=== PATIENT | male | born 1960 | race Caucasian/White ===

== ENCOUNTER → 2017-05-28 | Outpatient (CLI) | payer BC ==
--- NOTE | 2017-05-28 16:01 | US ---
EXAMINATION TYPE: US venous doppler duplex LE LT DATE OF EXAM: 05/28/2017 3:52 PM COMPARISON: NONE CLINICAL HISTORY: M79.662 Pain in left leg, R22.42 swelling in left. SIDE PERFORMED: Left TECHNIQUE: The lower extremity deep venous system is examined utilizing real time linear array sonog priyank with graded compression, doppler sonography and color-flow sonography. VESSELS IMAGED: External Iliac Vein (EIV) Common Femoral Vein Deep Femoral Vein Greater Saphenous Vein * Femoral Vein Popliteal Vein Small Saphenous Vein * Proximal Calf Veins (* superficial vessels) Left Leg: Negative for DVT Grayscale, color doppler, spectral doppler imaging performed of the deep veins of the lower extremiti es. There is normal flow, compressibility, vascular waveforms. IMPRESSION: No evident deep venous thrombosis at or above the left knee.
== END | disposition home or self-care (01) ==
LOC: RADUSWWP 15:24
PROVIDERS: ATTEND Internal Medicine
DX: M79.662 Pain in left lower leg (principal); R22.42 Localized swelling, mass and lump, left lower limb; Z88.8 Allergy status to other drugs, medicaments and biological substances

== ENCOUNTER 2017-08-26 11:25 | Inpatient (IN) | payer BC ==
[2017-08-26] MEDS ORDERED: ALPRAZolam 0.25 MG TAB PO PRN (12:53)
[2017-08-26] MEDS ORDERED: NITROGLYCERIN SL TABS 0.4 MG TAB SUBLINGUAL PRN (12:53)
[2017-08-26] MEDS ORDERED: SODIUM CHLORIDE 0.9% 1,000 ML in EMPTY BAG 1 BAG IV ONE (12:53)
[2017-08-26] MEDS ORDERED: ALPRAZolam 0.5 MG TAB PO PRN (12:53)
[2017-08-26] MEDS ORDERED: TEMAZEPAM 15 MG CAP PO PRN (13:53)
[2017-08-26] MEDS ORDERED: HYDROcodone/APAP 5-325MG 1 EACH TAB PO PRN (13:53)
[2017-08-26 13:54] LABS: Anisocytosis Slight; Basophils % (A) 1 %; Eosinophils # (A) 0.1 k/uL (0-0.7); Eosinophils % (A) 3 %; HCT 27.4 % (39.0-53.0); HGB 8.2 gm/dL (13.0-17.5); Hypochromasia Marked; Lymphocytes # (A) 0.5 k/uL (1.0-4.8); Lymphocytes % (A) 20 %; MCH 27.5 pg (25.0-35.0); MCHC 29.8 g/dL (31.0-37.0); MCV 92.2 fL (80.0-100.0); Monocytes # (A) 0.3 k/uL (0-1.0); Monocytes % (A) 12 %; Neutrophils # (A) 1.5 k/uL (1.3-7.7); Neutrophils % (A) 60 %; RBC 2.97 m/uL (4.30-5.90); RDW 16.5 % (11.5-15.5); WBC 2.5 k/uL (3.8-10.6)
[2017-08-26 13:56] LABS: INR 1.3 (<1.2); Partial Thromboplastin Time 23.4 sec (22.0-30.0); Prothrombin Time 12.6 sec (9.0-12.0)
[2017-08-26] MEDS ORDERED: NALOXONE 0.4 MG/ML 1 ML VIAL IV PRN (13:56)
[2017-08-26 14:10] LABS: ALT 40 U/L (21-72); AST 76 U/L (17-59); Albumin 3.4 g/dL (3.5-5.0); Alkaline Phosphatase 161 U/L (38-126); Anion Gap 11 mmol/L; Blood Urea Nitrogen 15 mg/dL (9-20); Calcium 8.6 mg/dL (8.4-10.2); Carbon Dioxide 21 mmol/L (22-30); Chloride 108 mmol/L (98-107); Cholesterol 103 mg/dL (<200); Glucose 91 mg/dL (74-99); HDL Cholesterol 28 mg/dL (40-60); LDL Cholesterol,Calculated 60 mg/dL (0-99); Potassium 4.5 mmol/L (3.5-5.1); Sodium 140 mmol/L (137-145); Total Bilirubin 1.3 mg/dL (0.2-1.3); Triglycerides 74 mg/dL (<150)
--- NOTE | 2017-08-26 14:28 | XR ---
EXAMINATION TYPE: XR chest 1V portable DATE OF EXAM: 08/26/2017 COMPARISON: Prior chest x-ray 07/17/2013 HISTORY: Congestive heart failure TECHNIQUE: Single frontal view of the chest is obtained. FINDINGS: There is no focal air space opacity, pleural effusion, or pneumothorax seen. The cardiac silhouette size is within normal limits. The osseous structures are intact, old posterior left sixt h rib fracture is thought to be healed. There are overlying cardiac leads. IMPRESSION: No acute process. Stable exam.
[2017-08-26 14:34] LABS: Platelet Count 60 k/uL (150-450)
--- NOTE | 2017-08-26 14:38 | HP ---
HISTORY AND PHYSICAL CHIEF COMPLAINTS: Chest pain. HISTORY OF PRESENT ILLNESS: This 57-year-old gentleman with a past history of hypertension, history of DJD, history of varicose veins, history of anxiety, depression, being followed by Dr. Cardenas in the outpatient setting. The patient had been complaining of chest pain and shortness of breath with chest pain felt in the anterior part of the chest. Patient underwent a stress test as an outpatient by Cardiology. Stress test was positive. Patient admitted for further evaluation including possible cardiac cath. There is no history of fever, rigors. No headache, loss of consciousness. Patient is complaining of back pain. PAST MEDICAL HISTORY: History of DJD, history of hypertension, anxiety, depression, history of nicotine dependence. MEDICATIONS: Prior to admission include: 1. Ambien 10 mg q.h.s. p.r.n. 2. Sudafed 30 mg b.i.d. 3. Prilosec 40 mg daily. 4. Benicar 40 mg p.o. daily. 5. Hydrocodone [place] 10 mg q.i.d. p.r.n. ALLERGIES: BUTALBITAL. FAMILY HISTORY: Colon cancer in the family. SOCIAL HISTORY: History of alcohol, THC, history of smoking. REVIEW OF SYSTEMS: ENT: No diminished hearing or vision. CARDIOVASCULAR: No angina. As mentioned earlier. RESPIRATORY: As mentioned earlier. GI: No nausea. : No dysuria. NERVOUS SYSTEM: No numbness or weakness. ALLERGY/IMMUNOLOGY: No asthma, hayfever. MUSCULOSKELETAL: As mentioned earlier. HEMATOLOGY: No history of anemia. ENDOCRINE: No history of diabetes or hypothyroidism. CONSTITUTIONAL: As mentioned earlier. DERMATOLOGY: Negative. RHEUMATOLOGY: Negative. PSYCHIATRY: As mentioned earlier. PHYSICAL EXAMINATION: Alert and oriented x3. Pulse is 80, blood pressure 120/90, respiration 20, temp is normal. HEENT: Conjunctivae normal. Oral mucosa moist. NECK: No jugular venous distention. No carotid bruit. No lymph node enlargement. CARDIOVASCULAR: S1, S2 muffled. No S3, no S4. RESPIRATORY: Breath sounds diminished in the bases. No rhonchi. No crackles. ABDOMEN: Soft, nontender. No mass palpable. LEGS: No edema, no swelling. NERVOUS SYSTEM: Higher functions as mentioned earlier, moves all 4 limbs, no focal motor deficits. LYMPHATICS: No lymphadenopathy in the neck, axillae, groin. SKIN: No ulcer, rash or bleeding. LABS: At this time, awaited. ASSESSMENT: 1. Chest pain possible unstable angina with positive stress test. 2. Hypertension. 3. Anxiety, depression. 4. Degenerative joint disease. 5. History of nicotine dependence. 6. History of THC. 7. Shortness of breath for evaluation, rule out chronic obstructive pulmonary disease. RECOMMENDATIONS AND DISCUSSION: This 57-year-old gentleman who presented with multiple medical issues, at this time, I recommend to continue current management and symptomatic treatment. Continue with antiplatelet medication, beta blockers and Lipitor. Smoking cessation. Otherwise, closely follow with Cardiology for possible cardiac cath. Resume the home medications and the prognosis guarded. Further recommendations to follow. MMODL / IJN: [id number] /
[2017-08-26] MEDS: NICOTINE 14MG/24HR PATCH TRANSDERM SCH (15:25)
[2017-08-26] MEDS: METOPROLOL TARTRATE 25 MG TAB PO SCH ×2 (15:26→20:43)
[2017-08-26] MEDS: ASPIRIN 81 MG PO SCH (15:27)
--- NOTE | 2017-08-26 16:56 | CONS ---
CONSULTATION Mr. Ortiz is a 57-year-old gentleman who came to the outpatient stress lab for a stress test. Patient has a history of hypertension and a long-standing history of smoking. Patient has been having intermittent left precordial chest discomfort on and off for the last couple of months which is gradually increasing. The pain usually does not radiate to the neck or jaw and pain is not definitely related to exertion. The patient denies any prior history of myocardial infarction. Patient has a history of hypertension. Patient denies any history of diabetes. Patient underwent the stress test. Immediately within the first 3 minutes of exercise the patient started having some mild chest discomfort. EKG showed a horizontal ST-segment depression in leads II, III and aVF which persisted for about 6-8 minutes in the post-exercise period. Patient's pain subsided. In view of the strongly positive stress test, patient is advised further evaluation with cardiac catheterization for definitive diagnosis. PAST MEDICAL HISTORY: 1. History of back problem. 2. History of hypertension. REVIEW OF SYSTEMS: Otherwise unremarkable. Patient denies any history of peptic ulcer disease or any blood in the stool or black stool. He does have a history of some epistaxis. ALLERGIES: NONE KNOWN. PHYSICAL EXAMINATION: Physical examination at present reveals a 57-year-old gentleman who is thinly built, does not appear to be in any acute distress. Blood pressure is 140/80 mmHg. Head/ENT examination is negative. NECK: Supple. There is no increase in jugular venous pressure. Both the carotid pulses are felt. There is no bruit. Chest is symmetrical. HEART: The PMI is not felt. First and second heart sounds were normal. There is no evidence of any murmur. Lungs are clinically clear to auscultation and percussion. Abdomen is negative. EXTREMITIES: Both femoral pulses are felt. Distal pulses are not felt. Echocardiogram was repeated about 15 to 20 minutes after the patient's stress test which reveals normal left ventricular wall motion. FINAL IMPRESSION: This patient has a history suggestive for recent onset of angina with a strongly positive stress test with about 2.[address]-segment depression persisting in the post-exercise period. Rule out underlying significant coronary artery disease. Patient was fully explained the procedure and risks and he wants to proceed with the catheterization. We will discuss with the patient's sister. MMODL / IJN: [id number] /
[2017-08-26] MEDS: HYDROcodone/APAP 10-325MG 1 EACH TAB PO PRN (18:25)
[2017-08-26] MEDS: ATORVASTATIN 80 MG TAB PO SCH (20:42)
[2017-08-26] MEDS ORDERED: LORazepam 2 MG/ML INJ IV PRN ×3 (21:53)
[2017-08-26] MEDS: FAMOTIDINE 20 MG TAB PO SCH (21:56)
[2017-08-27] MEDS: FOLIC ACID 1 MG TAB PO SCH ×2 (00:03→11:01)
[2017-08-27] MEDS: HYDROcodone/APAP 10-325MG 1 EACH TAB PO PRN ×3 (02:35→18:33)
[2017-08-27 05:55] LABS: Glucose,Whole Blood 110 mg/dL (75-99)
[2017-08-27 06:26] LABS: Anion Gap 9 mmol/L; Blood Urea Nitrogen 16 mg/dL (9-20); Calcium 7.8 mg/dL (8.4-10.2); Carbon Dioxide 20 mmol/L (22-30); Chloride 107 mmol/L (98-107); Glucose 95 mg/dL (74-99); Potassium 3.9 mmol/L (3.5-5.1); Sodium 136 mmol/L (137-145)
[2017-08-27] MEDS: METOPROLOL TARTRATE 25 MG TAB PO SCH ×2 (06:30→21:14)
[2017-08-27] MEDS: ASPIRIN 81 MG PO SCH (06:30)
[2017-08-27] MEDS: FAMOTIDINE 20 MG TAB PO SCH (06:30)
[2017-08-27 06:31] LABS: Anisocytosis Slight; HCT 23.9 % (39.0-53.0); HGB 7.3 gm/dL (13.0-17.5); Hypochromasia Marked; MCH 28.1 pg (25.0-35.0); MCHC 30.6 g/dL (31.0-37.0); Mean Platelet Volume 7.6; RDW 16.5 % (11.5-15.5); WBC 3.5 k/uL (3.8-10.6)
[2017-08-27 06:32] LABS: Platelet Count 65 k/uL (150-450)
[2017-08-27 06:57] LABS: Eosinophils # (M) 0.04 k/uL (0-0.7); Lymphocytes # (M) 1.12 k/uL (1.0-4.8); Monocytes # (M) 0.56 k/uL (0-1.0); Neutrophils # (M) 1.79 k/uL (1.3-7.7); Neutrophils % (M) 51 %; Nucleated Red Blood Cells 0 /100 WBC (0-0); Total Cells Counted 100
[2017-08-27] MEDS ORDERED: PANTOPRAZOLE 40 MG TABLET PO SCH (07:30)
[2017-08-27] MEDS: NICOTINE 14MG/24HR PATCH TRANSDERM SCH (07:58)
[2017-08-27] MEDS: IOPAMIDOL-300 CONTRAST 30 ML VIAL (ORAL USE) PO PRN ×2 (10:03→11:00)
--- NOTE | 2017-08-27 12:23 | ECHOF ---
Referral Reason:cp MEASUREMENTS -------- HEIGHT: 177.8 cm WEIGHT: 66.2 kg BP: RVIDd: 2.7 cm (< 3.3) IVSd: 1.0 cm (0.6 - 1.1) LVIDd: 4.8 cm (3.9 - 5.3) LVPWd: 1.0 cm (0.6 - 1.1) IVSs: 1.4 cm LVIDs: 2.3 cm LVPWs: 1.4 cm LAESV Index (A-L): 38.64 ml/m Ao Diam: 2.7 cm (2.0 - 3.7) AV Cusp: 1.9 cm (1.5 - 2.6) LA Diam: 3.5 cm (2.7 - 3.8) EPSS: 0.3 cm MV E Woo: 0.98 m/s MV DecT: 278 ms MV A Woo: 0.74 m/s MV E/A Ratio: 1.32 RAP: 5.00 mmHg RVSP: 50.82 mmHg MV EF SLOPE: 115.56 mm/s (70 - 150) MV EXCURSION: 1.56 cm (> 18.000) FINDINGS -------- Sinus rhythm. This was a technically good study. The left ventricular size is normal. Left ventricular wall thickness is normal. Overall left vent ricular systolic function is normal with, an EF between 55 - 60 %. The right ventricle is normal in size and function. LA is moderately dilated 34-39 ml/m2 RA appears enlarged. Aortic valve is trileaflet and is mildly thickened. There is no evidence of aortic regurgitation. There is no evidence of aortic stenosis. The mitral valve leaflets are mildly thickened. Mild mitral regurgitation is present. Mild tricuspid regurgitation present. There is mild pulmonary hypertension. The right ventricular systolic pressure, as measured by Doppler, is 50.82mmHg. Trace/mild (physiologic) pulmonic regurgitation. The aortic root size is normal. Normal inferior vena cava with normal inspiratory collapse consistent with estimated right atrial pre ssure of 5 mmHg. There is no pericardial effusion. CONCLUSIONS -------- 1. Sinus rhythm. 2. This was a technically good study. 3. The left ventricular size is normal. 4. Left ventricular wall thickness is normal. 5. Overall left ventricular systolic function is normal with, an EF between 55 - 60 %. 6. LA is moderately dilated 34-39 ml/m2 7. RA appears enlarged. 8. Aortic valve is trileaflet and is mildly thickened. 9. The mitral valve leaflets are mildly thickened. 10. Mild mitral regurgitation is present. 11. Mild tricuspid regurgitation present. 12. There is mild pulmonary hypertension. 13. The right ventricular systolic pressure, as measured by Doppler, is 50.82mmHg. 14. Trace/mild (physiologic) pulmonic regurgitation. 15. The aortic root size is normal. 16. There is no pericardial effusion. PERINATAL BREASTFEEDING ASSISTANT: Austin Feliciano RDCS
--- NOTE | 2017-08-27 12:49 | CT ---
EXAMINATION TYPE: CT ChestAbdPelvis w con DATE OF EXAM: 08/27/2017 INDICATION: Chest pain COMPARISON: NONE CT DLP: 559.10 mGycm CONTRAST: Performed with Oral Contrast and with IV Contrast, patient injected with 100 ml mL of Isovue 300. TECHNIQUE: Axial images at 5 mm thick sections. Reconstructed images in the coronal plane. Delayed images through the kidneys. FINDINGS: CT CHEST: Portion of the thyroid visualized is normal. Minimal groundglass opacities through the right middle lobe. This is patchy in a couple of locations with some additional groundglass opacity within the lingula. Some very minimal pulmonary edema could be considered. No enlarged mediastinal or hilar adenopathy is evident. The ascending aorta diameter at the level of the main pulmonary artery is 3.4 cm. The main pulmonary artery diameter at the bifurcation is 2.2 cm. Coronary artery calcification is present. CT ABDOMEN: Ascites is present adjacent to the liver and spleen. Some fluid surrounds the gallbladder . Liver: There is a 1.6 cm hypodensity with irregular bennett within the superior portion of the liver. T his is nonspecific and better visualized on the delayed images. Metastatic lesion could be considered . Complex cyst is also within the differential. Consider ultrasound abdomen for additional evaluation . Spleen: Splenomegaly is present and 16.3 cm. Normal less than 12.5 cm. Pancreas: Normal Adrenal glands: The adrenal glands are normal. Gallbladder: Fluid surrounds the gallbladder. Gallstones are not clearly identified. Kidneys: No masses are evident. No hydronephrosis is present. No cysts are present. Delayed images were obtained through the kidneys, which remain unremarkable. Aorta: Vascular calcification is within the aorta. Inferior vena cava: Normal. CT PELVIS: Free fluid is within the pelvis. Loops of bowel within the abdomen and pelvis are normal. There are loops of bowel which are incom pletely distended or lack oral contrast limiting their evaluation. Appendix: Normal as visualized. Urinary bladder: Normal. Genitourinary structures: Prostate contains calcification. Osseous structures: No suspicious lytic or sclerotic lesions. Degenerative disc changes in the lower lumbar spine. IMPRESSIONS: 1. Ascites. 2. Minimal subtle mosaic pattern within the lingula and right middle lobe could be some very minimal pulmonary edema.
--- NOTE | 2017-08-27 14:43 | P.CONS ---
History of Present Illness - Reason for Consult Consult date: 08/27/17 Pancytopenia - History of Present Illness The patient is a 57-year-old male, with multiple medical issues. The patient had presented in the outpatient setting to his PCP with complains of anterior chest pain off and on, exacerbated by exertion, as well as shortness of breath on exertion. He had an outpatient stress test that was positive. He was admitted electively for cardiac catheterization. On admission he was noted to have pancytopenia, with hemoglobin 8.2, white count 2.5, platelet 60, and absolute neutrophil count 1.5. Consult was placed for further evaluation and recommendations. The patient denied any prior history of blood related problems. He denies any history of any recent infectious type illness or antibiotic use. He is a regular fairly heavy alcohol user, drinking up to at least 5-6 beers per day. He had a computed tomography scan of the chest abdomen and pelvis done, which showed evidence of ascites, splenomegaly and somewhat nodular liver contour. Review of Systems Constitutional: Reports chronic pain, Reports fatigue Eyes: denies blurred vision, denies pain Ears: deny: decreased hearing, ear discharge, earache, tinnitus Ears, nose, mouth and throat: Denies headache, Denies sore throat Cardiovascular: Reports chest pain, Reports shortness of breath Respiratory: Reports dyspnea Gastrointestinal: Denies abdominal pain, Denies diarrhea, Denies nausea, Denies vomiting Genitourinary: Reports as per HPI Musculoskeletal: Reports as per HPI, Reports low back pain Integumentary: Reports foot/leg ulcers (Likely venous), Denies pruritus, Denies rash Neurological: Denies numbness, Denies weakness Psychiatric: Denies anxiety, Denies depression Endocrine: Denies fatigue, Denies weight change Hematologic/Lymphatic: Reports as per HPI Past Medical History Past Medical History: GI Bleed, Hearing Disorder / Deafness, Hypertension, Osteoarthritis (OA) Additional Past Medical History / Comment(s): Pt states he has gained 20 pounds over the past 3 months-he states when he stands for long periods his legs swell and his abdomin feels distended, Upper GI bleed-duodenal ulcer, lower GI bleed- hemorrhoids, chronic low back pain, bilateral varicose veins/worse in L leg, chronic low back pain, ETOH-past medical record states alcholic hepatitis/ thrombocytopenia. History of Any Multi-Drug Resistant Organisms: None Reported Past Surgical History: No Surgical Hx Reported Additional Past Surgical History / Comment(s): EGD/colonoscopy, PAIN CLINIC INJECTIONS Past Anesthesia/Blood Transfusion Reactions: No Reported Reaction Additional Past Anesthesia/Blood Transfusion Reaction / Comm: no surgeries Smoking Status: Current every day smoker - Past Family History Father Family Medical History: Cancer Additional Family Medical History / Comment(s): COLON CANCER. Father is in his 80s. Mother Family Medical History: Coronary Artery Disease (CAD), Myocardial Infarction (HI ) Additional Family Medical History / Comment(s): Mother had a HI in her early 80s. Medications and Allergies Home Medications Medication Instructions Recorded Confirmed Type Omeprazole [PriLOSEC] 40 mg PO DAILY 01/03/16 08/26/17 History ALPRAZolam [Xanax] 0.5 mg PO HS 08/26/17 08/26/17 History Folic Acid 1 mg PO DAILY 08/26/17 08/26/17 History Furosemide [Lasix] 20 mg PO DAILY 08/26/17 08/26/17 History HYDROcodone/APAP 10-325MG [[place] 1 tab PO TID PRN 08/26/17 08/26/17 History 10-325] Losartan Potassium 100 mg PO DAILY 08/26/17 08/26/17 History Potassium Chloride [Klor-Con 10] 10 meq PO DAILY 08/26/17 08/26/17 History Allergies Allergy/AdvReac Type Severity Reaction Status Date / Time butalbital [From Fioricet] Allergy Rash/Hives Verified 08/26/17 15:19 Physical Exam Vitals: Vital Signs Temp Pulse Resp BP BP Pulse Ox 08/27/17 08:00 97.6 F 71 18 137/79 99 08/27/17 04:00 97.8 F 72 18 130/71 97 08/27/17 00:00 97.2 F L 60 17 159/85 98 08/26/17 20:00 97.7 F 67 18 157/74 99 08/26/17 16:00 98 F 70 20 152/88 99 Intake and Output 08/26/17 08/27/17 08/27/17 22:59 06:59 14:59 Intake Total 200 1280 540 Output Total 500 Balance 200 780 540 Intake: Intake, IV Titration 780 Amount Sodium Chloride 0.9% 1, 780 000 ml In Empty Bag 1 bag @ 1 ML/KG/HR 66.22 mls/ hr IV .[id number] ONE Rx#: [id number] Oral 200 500 540 Output: Urine 500 Other: Voiding Method Toilet Toilet Toilet Urinal Urinal Urinal # Voids 1 1 Weight 65 kg - Constitutional General appearance: no acute distress - EENT Eyes: EOMI, PERRLA ENT: hearing grossly normal, normal oropharynx - Neck Neck: no lymphadenopathy Thyroid: bilateral: normal size - Respiratory Respiratory: bilateral: CTA - Cardiovascular Rhythm: regular Heart sounds: normal: S1, S2 - Gastrointestinal Probable ascites by exam General gastrointestinal: distended, normal bowel sounds, soft - Integumentary Areas of hyperpigmentation, both lower extremities, with superficial scabbing and ulceration - Neurologic Neurologic: CNII-XII intact - Musculoskeletal Musculoskeletal: generalized weakness, strength equal bilaterally - Psychiatric Psychiatric: A&O x's 3, appropriate affect Results CBC & Chem 7: 08/27/17 05:54 08/27/17 05:54 Labs: Abnormal Lab Results - Last 24 Hours (Table) 08/26/17 08/27/17 08/27/17 Range/Units 13:26 05:52 05:54 WBC 3.5 L (3.8-10.6) k/uL RBC 2.60 L (4.30-5.90) m/uL Hgb 7.3 L (13.0-17.5) gm/dL Hct 23.9 L (39.0-53.0) % MCHC 30.6 L (31.0-37.0) g/dL RDW 16.5 H (11.5-15.5) % Plt Count 60 L 65 L (150-450) k/uL Lymphocytes # 0.5 L (1.0-4.8) k/uL Sodium (137-145) mmol/L Carbon Dioxide (22-30) mmol/L POC Glucose (mg/dL) 110 H (75-99) mg/dL Calcium (8.4-10.2) mg/dL 08/27/17 Range/Units 05:54 WBC (3.8-10.6) k/uL RBC (4.30-5.90) m/uL Hgb (13.0-17.5) gm/dL Hct (39.0-53.0) % MCHC (31.0-37.0) g/dL RDW (11.5-15.5) % Plt Count (150-450) k/uL Lymphocytes # (1.0-4.8) k/uL Sodium 136 L (137-145) mmol/L Carbon Dioxide 20 L (22-30) mmol/L POC Glucose (mg/dL) (75-99) mg/dL Calcium 7.8 L (8.4-10.2) mg/dL CT scan - abdomen: report reviewed CT scan - chest: report reviewed CT scan - pelvis: report reviewed Assessment and Plan (1) Pancytopenia Narrative/Plan: The patient is being seen for pancytopenia which is apparently new. Based on my evaluation so far, the most likely diagnosis is marrow suppression from regular alcohol use. The patient also probably has alcohol related liver damage , which will further affect platelet function. In addition he has a large spleen, likely due to the same, which could lead to splenic sequestration, especially of the platelets and white blood cells. All counts are currently in a safe range. I will order for pancytopenia workup to rule out other causes. Assuming this to be negative, he was advised that he would need to cut down his alcohol consumption and hopefully quit completely. Assuming counts to a safe range, and workup is negative, we would recommend follow-up in the outpatient setting with alcohol cessation efforts Current Visit: Yes Status: Acute Code(s): D61.818 - OTHER PANCYTOPENIA SNOMED Code(s): 446835746 (2) Chest pain Narrative/Plan: The patient had a positive stress test, and cardiac aspiration is planned. No blood counts are low they're all in a safe range. Absolute neutrophil count is greater than 1000, and platelets are greater than 50,000. Therefore from the hematology standpoint it is okay to proceed with any interventional cardiology procedures. As long as. Counts are greater than 50,000, the patient can be placed on anticoagulation or antiplatelet therapy as needed. Current Visit: Yes Status: Acute Code(s): R07.9 - CHEST PAIN, UNSPECIFIED SNOMED Code(s): 14896132 Plan: Defer to the admitting service and other consultants for management of his multiple other medical problems
--- NOTE | 2017-08-27 14:48 | PN ---
PROGRESS NOTE DATE OF SERVICE: 08/27/2017 This is a 57-year-old gentleman who was admitted with chest pain and shortness of breath, had a cardiac catheterization, the full assessment not available at this time. An intervention is being suspended because of the low hemoglobin. Hemoglobin is 7.3 and the platelets are 65. The patient also had a CAT scan of the abdomen which showed some splenomegaly and ascites, probably indicating chronic liver disease and cirrhosis of the liver, possibly secondary to significant alcohol intake. There is no history of chest pain. PAST MEDICAL HISTORY: Reviewed. REVIEW OF SYSTEMS: Cardiovascular system: S1, S2, muffled. RESPIRATORY: As mentioned earlier. GI: As mentioned earlier. : No dysuria. CURRENT MEDICATIONS ARE REVIEWED INCLUDE: 1. [place] 10 mg q.h.s. 2. Xanax. 3. Aspirin 81. 4. Lipitor. 5. Pepcid 20 mg b.i.d. 6. Folic acid. 7. Ativan. 8. Narcan. 9. Habitrol. 10.Protonix 40 mg. 11.Restoril. PHYSICAL EXAM: Patient is alert, oriented x3. Pulse 71, blood pressure 136/70, respiration 18, temperature is 97.8, pulse ox 98% on room air. HEENT: Conjunctivae normal. Oral mucosa moist. Neck is no jugular venous distention. No carotid bruit. No lymph node enlargement. CARDIOVASCULAR SYSTEM: S1, S2, muffled. RESPIRATORY: Breath sounds diminished at the bases, no rhonchi, no crackles. ABDOMEN: Soft, minimal diffuse distention. No mass palpable. LEGS: No edema, no swelling. NERVOUS SYSTEM: Higher functions as mentioned earlier, moves all 4 limbs, no focal motor deficits. LYMPHATICS: No lymph node enlargement in the neck or axillae. SKIN: No ulcer, rash or bleeding. LABS: WBC is 3.2, hemoglobin is 7.3, sodium 136. ASSESSMENT: 1. Chest pain, possible unstable angina with positive stress test, status post cardiac catheterization. 2. Ascites, abdominal distention, splenomegaly, possibly chronic liver disease and cirrhosis possibly secondary to alcohol. 3. Hypertension, anxiety, depression. 4. Degenerative joint disease. 5. History of nicotine dependence. 6. History of THC. 7. Shortness of breath, possibly secondary to anemia. RECOMMENDATION: In this 57-year-old gentleman who presented with multiple complex medical issues, at this time I recommend to continue current management and symptomatic treatment. I would recommend repeat labs tomorrow. I would also recommend a small dose of diuretics and continue to monitor. Alcohol cessation has been recommended. Hematology/Oncology has been consulted and further recommendations to follow. MMJUSTINAL / LAUREN: [id number] /
[2017-08-27] MEDS: SPIRONOLACTONE 25 MG TAB PO SCH ×2 (17:01→21:14)
[2017-08-27] MEDS: POTASSIUM CHLORIDE ER 10 MEQ TAB.ER.PRT PO SCH (17:02)
[2017-08-27] MEDS: PANTOPRAZOLE 40 MG TABLET PO SCH (17:02)
--- NOTE | 2017-08-27 17:18 | EST ---
EXERCISE STRESS The patient was exercised for a total period of 5 minutes. Peak heart rate of 134 was achieved. Maximum blood pressure of 208/77 mmHg was noted. Test was terminated because patient got short of breath and was having some chest discomfort. The resting EKG shows normal sinus rhythm with normal QT interval and QRS duration. Normal ST-T waves. During exercise about 1.5-[address]-segment depression is noted in the inferior lateral leads. ST-segment depression persisted for about 6 minutes into the post exercise period. The patient complained of some chest discomfort and shortness of breath during the test. FINAL IMPRESSION: This exercise test shows 2 to 2-1/[address]-segment depression during the exercise associated with symptoms of chest pain and shortness of breath. Underlying significant coronary artery disease needs to be ruled out. Patient's exercise tolerance is below average. No dysrhythmias were noted. MMJUSTINAL / LAUREN: [id number] /
[2017-08-27 18:17] LABS: Iron Saturation 4.9 (15.00-50.00)
[2017-08-27] MEDS: FUROSEMIDE 20 MG TAB PO SCH (21:14)
[2017-08-27] MEDS: ATORVASTATIN 80 MG TAB PO SCH (21:14)
[2017-08-27 21:30] LABS: Appearance,Urine Clear (Clear); Bilirubin,Urine Negative (Negative); Blood,Urine Trace (Negative); Color,Urine Light Yellow; Glucose,Urine (UA) Negative (Negative); Ketones,Urine Negative (Negative); Leukocyte Esterase,Urine Negative (Negative); Nitrite,Urine Negative (Negative); Protein,Urine Negative (Negative); RBC,Urine 1 /hpf (0-5); Specific Gravity,Urine 1.014 (1.001-1.035); Urobilinogen,Urine <2.0 mg/dL (<2.0); WBC,Urine <1 /hpf (0-5)
[2017-08-27] MEDS ORDERED: BENZOCAINE 20 % GEL 15 GM TUBE MM PRN (21:55)
[2017-08-28] MEDS: HYDROcodone/APAP 10-325MG 1 EACH TAB PO PRN ×2 (03:00→08:50)
[2017-08-28 06:42] LABS: Reticulocyte % 3.2 % (0.5-2.0)
[2017-08-28 06:48] LABS: Anion Gap 8 mmol/L; Blood Urea Nitrogen 13 mg/dL (9-20); Calcium 7.8 mg/dL (8.4-10.2); Carbon Dioxide 20 mmol/L (22-30); Chloride 108 mmol/L (98-107); Glucose 93 mg/dL (74-99); Potassium 4.5 mmol/L (3.5-5.1); Sodium 136 mmol/L (137-145)
[2017-08-28] MEDS: PANTOPRAZOLE 40 MG TABLET PO SCH (06:54)
[2017-08-28 06:58] LABS: Anisocytosis Slight; Basophils % (A) 1 %; Eosinophils # (A) 0.1 k/uL (0-0.7); Eosinophils % (A) 2 %; HCT 24.9 % (39.0-53.0); HGB 7.4 gm/dL (13.0-17.5); Hypochromasia Marked; Lymphocytes # (A) 0.9 k/uL (1.0-4.8); Lymphocytes % (A) 26 %; MCHC 29.9 g/dL (31.0-37.0); MCV 90.4 fL (80.0-100.0); Mean Platelet Volume 8.8; Monocytes # (A) 0.4 k/uL (0-1.0); Monocytes % (A) 13 %; Neutrophils # (A) 1.9 k/uL (1.3-7.7); Neutrophils % (A) 55 %; RBC 2.75 m/uL (4.30-5.90); RDW 16.6 % (11.5-15.5); WBC 3.5 k/uL (3.8-10.6)
[2017-08-28 06:59] LABS: Platelet Count 69 k/uL (150-450)
[2017-08-28] MEDS: ASPIRIN 81 MG PO SCH (08:51)
[2017-08-28] MEDS: SPIRONOLACTONE 25 MG TAB PO SCH (08:52)
[2017-08-28] MEDS: METOPROLOL TARTRATE 25 MG TAB PO SCH (08:52)
[2017-08-28] MEDS: POTASSIUM CHLORIDE ER 10 MEQ TAB.ER.PRT PO SCH (08:52)
[2017-08-28] MEDS: FOLIC ACID 1 MG TAB PO SCH (08:53)
[2017-08-28] MEDS: FUROSEMIDE 20 MG TAB PO SCH (08:53)
[2017-08-28] MEDS: NICOTINE 14MG/24HR PATCH TRANSDERM SCH (08:58)
[2017-08-28 10:49] LABS: Protein, Total 5.9 g/dL (6.2-8.2); Rheumatoid Factor 9 IU/mL (0-15)
[2017-08-28 10:51] VITALS: RESP 16
[2017-08-28 11:01] VITALS: BMI 19.9
--- NOTE | 2017-08-28 11:43 | P.PN ---
Subjective Progress Note Date: 08/28/17 This is a 57-year-old gentleman who came to the hospital for an outpatient stress test. He has a history of hypertension and long-standing history of nicotine dependence and significant use of EtOH. Patient also noted for the past 2 or 3 months he's been having significant swelling in his bilateral lower extremities and abdominal area. Patient underwent a stress test, immediately within the first 3 minutes of exercise he started having chest discomfort with horizontal ST-T segment depression in leads II, III, and AVF which persisted for approximately 6-8 minutes in post exercise period. For this reason he was advised to undergo cardiac catheterization. Subsequently patient had labs drawn , revealed low white blood cell count, low hemoglobin, and low platelets, for this reason the cardiac catheterization was canceled. Consultation was requested with hematology who came in to see the patient last evening. Lab data today, white blood cell count 3.5, hemoglobin 7.4, platelet count 69. Sodium 136, potassium 4.5, BUN 13, creatinine 0.5. Iron is 18, iron saturation 4.9. TIBC 367. Vitamin B12 796, folate 19.1. Hematology, based on their evaluation so far feel like the patient has marrow suppression from regular alcohol use. Patient also probably has alcohol-related liver damage which we' ll further affect platelet function. He has an enlarged spleen likely due to the same, which could lead to splenic sequestration especially of the platelets and white blood cell counts. According to hematology, they feel that the counts are currently in safe range if cardiac catheterization needed to be performed. They advised the patient to quit drinking alcohol and to follow-up with them as an outpatient. At the time of our examination this morning, patient feels extremely tired, he states that he did sleep well through the night last night. Blood pressure this morning 140/70 with a heart rate in the 70s, 100% on room air. Objective - Vital Signs Vital signs: Vital Signs Temp 97.4 F L 08/28/17 08:00 Pulse 71 08/28/17 08:00 Resp 16 08/28/17 11:08 BP 145/71 08/28/17 08:00 Pulse Ox 100 08/28/17 08:00 Intake & Output 08/27/17 08/28/17 08/28/17 18:59 06:59 18:59 Intake Total 1012 300 Output Total 500 960 Balance 512 -660 Weight 62.9 kg 62.9 kg Intake: Oral 1012 300 Output: Urine 500 960 Other: Voiding Method Toilet Toilet Toilet Urinal Urinal Urinal # Voids 1 - Exam PHYSICAL EXAMINATION: GENERAL: 57-year-old gentleman in no. Distress at the time of my examination. HEENT: Head is atraumatic, normocephalic. Pupils equal, round. Sclera anicteric. Conjunctiva are clear. Mucous membranes of the mouth are moist. Neck is supple. There is no elevated jugular venous pressure.] bruit is heard. HEART EXAMINATION: Heart S1, S2 normal. No murmur or gallop heard. CHEST EXAMINATION: Lungs are clear to auscultation and precussion. No chest wall tenderness is noted on palpation or with deep breathing. ABDOMEN: Firm, mildly distended, positive hepatomegaly. EXTREMITIES: 2+ peripheral pulses with evidence of peripheral edema in bilateral lower extremities,. NEUROLOGIC patient is awake, alert and oriented -3. . - Labs CBC & Chem 7: 08/28/17 05:54 08/28/17 05:54 Labs: Abnormal Lab Results - Last 24 Hours (Table) 08/27/17 08/27/17 08/28/17 Range/Units 05:54 21:20 05:54 WBC 3.5 L (3.8-10.6) k/uL RBC 2.75 L (4.30-5.90) m/uL Hgb 7.4 L (13.0-17.5) gm/dL Hct 24.9 L (39.0-53.0) % MCHC 29.9 L (31.0-37.0) g/dL RDW 16.6 H (11.5-15.5) % Plt Count 69 L (150-450) k/uL Lymphocytes # 0.9 L (1.0-4.8) k/uL Retic Count (0.5-2.0) % Sodium (137-145) mmol/L Chloride (98-107) mmol/L Carbon Dioxide (22-30) mmol/L Calcium (8.4-10.2) mg/dL Iron 18 L (65-175) ug/dL Iron Saturation 4.90 L (15.00-50.00) Urine Blood Trace H (Negative) 08/28/17 08/28/17 Range/Units 05:54 05:54 WBC (3.8-10.6) k/uL RBC (4.30-5.90) m/uL Hgb (13.0-17.5) gm/dL Hct (39.0-53.0) % MCHC (31.0-37.0) g/dL RDW (11.5-15.5) % Plt Count (150-450) k/uL Lymphocytes # (1.0-4.8) k/uL Retic Count 3.2 H (0.5-2.0) % Sodium 136 L (137-145) mmol/L Chloride 108 H (98-107) mmol/L Carbon Dioxide 20 L (22-30) mmol/L Calcium 7.8 L (8.4-10.2) mg/dL Iron (65-175) ug/dL Iron Saturation (15.00-50.00) Urine Blood (Negative) Assessment and Plan Plan: Assessment and plan #1 chest pain with positive stress test #2 pancytopenia #3 significant EtOH use #4 nicotine dependence Plan CAT scan of the abdomen was performed, it did reveal evidence of ascites adjacent to the liver and spleen. 1.6 cm hypodensity with irregular bennett within the superior portion of the liver, nonspecific and better visualized on delayed images. Metastatic lesion could be considered. The ascending aorta diameter at the level of the main pulmonary artery 3.4 cm. Main pulmonary artery diameter 2.2 cm. Coronary artery calcification is present. Splenomegally is noted. Low iron count. Hematology is following. At this time we will defer doing any cardiac catheterization, until the patient's blood work improves. Continue current therapy. Echo with Doppler study revealed a normal left ventricular systolic function. DNP note has been reviewed, I agree with a documented findings and plan of care. Patient was seen and examined.
[2017-08-28 12:42] VITALS: BP 137/75; PULSE 65; TEMP 97.8
--- NOTE | 2017-08-28 20:28 | DS ---
DISCHARGE SUMMARY FINAL DIAGNOSES: 1. Chest pain, possible unstable angina with positive stress test on medical treatment. 2. Ascites, abdominal distention, splenomegaly, possibly chronic liver disease and cirrhosis, possibly secondary to alcohol. 3. Hypertension. 4. Anxiety. 5. Depression. 6. Degenerative joint disease. 7. History of nicotine dependence. 8. History of THC. 9. Shortness of breath possibly secondary to anemia. DISCHARGE DISPOSITION: Patient will be discharged in stable condition with guarded prognosis. Total time taken 35 minutes. HISTORY OF PRESENT ILLNESS: This 57-year-old gentleman with a past medical history of multiple medical problems was admitted with chest pain, shortness of breath and the patient also had a which is positive. But however the patient had multiple medical abnormalities including hemoglobin of 7.4 and platelets of 69. Cardiac cath was withheld at this time and the patient also underwent a CT scan of the abdomen and pelvis showed possibly cirrhosis of liver with splenomegaly and ascites, treated symptomatically and Dr. Mcnair saw the patient and cleared the patient for surgery, but however, cardiology is planning outpatient evaluation and consider surgery later. On exam, vital signs stable. Cardio system: S1, S2. Abdomen was soft. Nervous system: No focal deficits. DISCHARGE ADVICE AND MEDICATIONS: 1. Diet is cardiac diet. 2. Activity limited until followup. 3. Follow up with Dr. Cardenas in 2-3 days. 4. Follow up with Cardiology in 1 week. 5. Follow up with Gastroenterology, Dr. Dejesus in 10 days. MEDICATION: 1. Xanax 0.5 mg q.h.s. 2. Aspirin 81 mg p.o. daily. 3. Lipitor 80 mg q.h.s. 4. Folic acid 1 mg p.o. daily. 5. Lasix 20 mg p.o. b.i.d. 6. [place] 10 mg t.i.d. p.r.n. 7. Losartan 200 mg p.o. daily. 8. Lopressor 25 mg p.o. b.i.d. 9. Habitrol 14 daily. 10.Protonix 40 mg p.o. b.i.d. 11.Klor-Con 10 mg p.o. daily. 12.Aldactone 25 mg p.o. b.i.d. Monitor lytes, CBC and BMP closely in the outpatient setting. Once again, the patient is being discharged in stable with guarded prognosis. MMODL / IJN: [id number] / MTDD
[2017-08-30 11:40] LABS: Albumin 2.73 g/dL (3.80-4.90); Gamma Globulin 1.49 g/dL (0.70-1.50)
[2017-08-31 04:47] LABS: Methylmalonic Acid 0.32 umol/L (<0.40)
== END 2017-08-28 16:10 | disposition home or self-care (01) | DRG 311 ==
LOC: RADNMMAIN 11:25 → 6SEL 12:58
PROVIDERS: ADMIT Hospitalist; ATTEND Internal Medicine
DX: I20.0 Unstable angina (principal); D61.818 Other pancytopenia; F17.200 Nicotine dependence, unspecified, uncomplicated; F32.9 Major depressive disorder, single episode, unspecified; F41.9 Anxiety disorder, unspecified; H91.90 Unspecified hearing loss, unspecified ear; I10 Essential (primary) hypertension; M19.90 Unspecified osteoarthritis, unspecified site; K70.31 Alcoholic cirrhosis of liver with ascites; Z79.899 Other long term (current) drug therapy; Z80.0 Family history of malignant neoplasm of digestive organs; Z82.49 Family history of ischemic heart disease and other diseases of the circulatory system; Z87.11 Personal history of peptic ulcer disease; Z79.891 Long term (current) use of opiate analgesic; Z88.8 Allergy status to other drugs, medicaments and biological substances
CPT/HCPCS: 71045; 71260; 74177; 80048; 80053; 80061; 81001; 82607; 82728; 82746; 82747; 83540; 83550; 83883; 83921; 84165; 85025; 85045; 85610; 85730; 86038; 86334; 86431; 93017; 93306

== ENCOUNTER 2017-09-21 10:45 | Day surgery (SDC) | payer BC ==
[2017-09-16 16:35] VITALS: BMI 20.5
[~2017-09-21 10:45] MED LIST: LACTATED RINGERS 1,000 ML IV SCH; LIDOCAINE 1% 20 ML VIAL (10MG/ML) FOR IV START INTRADERMA PRN
[2017-09-21 11:14] VITALS: RESP 16
[2017-09-21 11:19] VITALS: TEMP 97.4
[2017-09-21 12:14] LABS: Anisocytosis Slight; Basophils % (A) 1 %; Eosinophils # (A) 0.1 k/uL (0-0.7); Eosinophils % (A) 3 %; HCT 31.5 % (39.0-53.0); Hypochromasia Marked; Lymphocytes # (A) 0.7 k/uL (1.0-4.8); Lymphocytes % (A) 24 %; MCH 26.6 pg (25.0-35.0); MCHC 30.6 g/dL (31.0-37.0); MCV 86.9 fL (80.0-100.0); Mean Platelet Volume 7.5; Monocytes # (A) 0.4 k/uL (0-1.0); Monocytes % (A) 12 %; Neutrophils # (A) 1.7 k/uL (1.3-7.7); Neutrophils % (A) 56 %; RBC 3.62 m/uL (4.30-5.90); WBC 3.1 k/uL (3.8-10.6)
[2017-09-21 12:22] LABS: HGB 9.6 gm/dL (13.0-17.5)
[2017-09-21] MEDS ORDERED: LIDOCAINE 1% 20 ML VIAL (10MG/ML) FOR IV START INTRADERMA ONE (12:22)
[2017-09-21 12:23] LABS: Platelet Count 65 k/uL (150-450)
[2017-09-21] MEDS ORDERED: PROPOFOL 10 MG/ML 20 ML VIAL IV ONE (12:26)
[2017-09-21] MEDS ORDERED: LIDOCAINE 1% INJ 10MG/ML (20 ML MDV) ONE (12:26)
--- NOTE | 2017-09-21 12:56 | P.PCN ---
Date of Procedure: 09/21/17 Procedure(s) Performed: Procedure: Esophagogastroduodenoscopy and biopsy. Preoperative diagnosis: Symptomatic anemia. Postoperative diagnosis: 1. Small size esophageal varices without stigmata or bleeding. 2. Gastritis consistent with portal gastropathy with no evidence of active bleeding. 3. No ulcers, gastric outlet obstruction or other pathology. 4. Biopsies obtained from the antrum. Preparation and sedation: Was provided by anesthesia. Brief clinical history: The patient is a 57-year-old male who is scheduled for this evaluation because of symptomatic anemia. No history of overt bleeding. There is family history of colon cancer in his father and he had a colonoscopy with me in December 2015 which did not show any significant pathology. Because of his less than ideal preparation at that time, I was planning to repeat his colonoscopy this Fall. The patient has history of alcohol dependency and is trying to cut down on his consumption but he is still taking at least 2 beers daily and up to 6 on weekends. This evaluation is to assess for possible upper GI sources of bleeding and blood loss. Procedure: With the patient on his left lateral decubitus position and after informed consent and adequate sedation, I passed the Olympus-GIF 160 video upper endoscope through the cricopharyngeus down the esophagus. GE junction was around 40 cm from the incisors and there was no definite hiatal hernia or obvious esophagitis or complicated reflux disease. There were 4 columns of esophageal varices which are small in size. They start in the lower third of the esophagus and terminate the level of the GE junction. There was no stigmata of bleeding. The endoscope was then passed into the stomach which was insufflated with air and inspected in detail including the retroflex view in the cardia. There was diffuse mottling and erythema and areas of edema and some friability but there were no ulcers or erosions or any spontaneous bleeding. No gastric varices. Pyloric channel, duodenal bulb, post bulbar area and descending duodenum appeared within normal limits. All secretions encountered on this exam were either bilious or clear in color. I obtained biopsies from the antrum before the endoscope was withdrawn. The patient tolerated the procedure well. Plan: I summarized the findings to the patient. Will await biopsy results and monitor his course closely. I advised that he abstain completely from drinking alcohol. I will arrange for repeat colonoscopy and possible repeat upper endoscopy at the same time this Fall, especially if he continues to have evidence of anemia and GI blood loss. He will follow up with you as planned and I will keep you updated on his progress.
[2017-09-21 14:00] VITALS: BP 121/73; PULSE 70
== END 2017-09-21 13:42 | disposition home or self-care (01) ==
LOC: ORWHC2ENDO 10:45
DX: K29.50 Unspecified chronic gastritis without bleeding (principal); I85.00 Esophageal varices without bleeding; D64.9 Anemia, unspecified; K21.9 Gastro-esophageal reflux disease without esophagitis; M19.90 Unspecified osteoarthritis, unspecified site; I10 Essential (primary) hypertension; E78.5 Hyperlipidemia, unspecified; H91.90 Unspecified hearing loss, unspecified ear; Z80.0 Family history of malignant neoplasm of digestive organs; Z79.82 Long term (current) use of aspirin; Z79.891 Long term (current) use of opiate analgesic; Z79.899 Other long term (current) drug therapy; Z88.8 Allergy status to other drugs, medicaments and biological substances; Z72.0 Tobacco use
CPT/HCPCS: 88305; 85025; 43239; J2001; J2704